=== PATIENT | male | born 1960 | race Caucasian/White ===

== ENCOUNTER 2023-12-22 11:23 | Emergency (ER) | payer MEDICARE, OTHER ==
[~2023-12-22] VITALS: Ht 182.9 cm; Wt 65.2 kg
[2023-12-22 12:40] VITALS: BP 114/76
== END 2023-12-22 12:40 | disposition home or self-care (01) ==
LOC: ED 11:23
DX: K40.90 Unilateral inguinal hernia, without obstruction or gangrene, not specified as recurrent (principal)
CPT/HCPCS: 99283